=== PATIENT | female | born 1970 | race Caucasian/White ===

== ENCOUNTER 2020-07-31 10:33 | Emergency (ER) | payer MEDICAID ==
[~2020-07-31] VITALS: Ht 167.6 cm; Wt 90.7 kg
--- NOTE | 2020-07-31 11:00 | NUR ---
ED Nurse Note: PT. WALKED IN ER WITH HER INSTRUCTOR, PER PT. SHE WAS DOING HER CLINICAL IN SURGERY AND THE DOCTOR ADVANCED THE WIRE CAUSING A NEEDLESTICK ON THE 3RD DIGIT OF THE L HAND. PT IS AOx4,VSS, ON RA, AFEBRILE ON TRIAGE.
[2020-07-31] MEDS ORDERED: ISENTRESS400 MG ORAL (11:24)
[2020-07-31] MEDS ORDERED: TRUVADA 200 MG1 EAC1 ORAL (11:24)
[2020-07-31 11:25] VITALS: BP 134/70
[2020-07-31 11:45] VITALS: BP 134/70
--- NOTE | 2020-07-31 11:45 | NUR ---
ER DISCHARGE NOTE: Patient is cleared to be discharged per ERMD, pt is aox4, on room air, with stable vital signs. pt was given dc and prescription instructions, pt was able to verbalize understanding, pt id band removed. pt is able to ambulate with steady gait. pt took all belongings.
--- NOTE | 2020-07-31 13:32 | Emergency Room Report ---
History of Present Illness General Chief Complaint: Wound Recheck/Suture Removal Source: Patient Present Illness HPI 50-year-old female here after needlestick. Patient was retracting sutures in the operating room during a hip replacement for patient that is known HIV positive. Patient suffered a needlestick of her left index finger. She has no medical history. Allergies: Coded Allergies: No Known Allergies (Unverified , 07/31/20) COVID-19 Screening Contact w/high risk pt: No Experienced COVID-19 symptoms?: No COVID-19 Testing performed [employer] MANAGER: No Nursing Documentation-PMH Past Medical History: No Stated History Review of Systems All Other Systems: negative except mentioned in HPI Physical Exam Vital Signs Date Time Temp Pulse Resp B/P (MAP) Pulse Ox O2 Delivery O2 Flow Rate FiO2 07/31/20 10:48 98.8 80 19 134/70 (91) 95 Room Air Sp02 EP Interpretation: reviewed, normal General Appearance: no apparent distress, alert, non-toxic Head: normocephalic, atraumatic Eyes: bilateral eye normal inspection, bilateral eye PERRL ENT: hearing grossly normal, normal pharynx, no angioedema, normal voice Neck: full range of motion, supple/symm/no masses Cardiovascular #1: regular rate, rhythm, no edema Cardiovascular #2: 2+ carotid (R), 2+ carotid (L), 2+ radial (R), 2+ radial (L), 2+ dorsalis pedis (R), 2+ dorsalis pedis (L) Rectal: deferred Genitourinary: normal inspection, no CVA tenderness Musculoskeletal: back normal, normal range of motion, gait/station normal, non- tender Neurologic: alert, motor strength/tone normal, sensory intact, responsive, speech normal Psychiatric: judgement/insight normal, memory normal, mood/affect normal, no suicidal/homicidal ideation Skin: other - Very small 2 mm superficial laceration on the flexor surface of the left index finger distal phalanx Lymphatic: no adenopathy Medical Decision Making Diagnostic Impression: Primary Impression: Needle stick injury Additional Impressions: HIV exposure from body fluids HIV exposure ER Course 50-year-old female here after a needlestick. Patient suffered needlestick during a procedure on a patient who was known HIV positive. Rapid HIV and hepatitis panel were ordered and were negative. Patient was given a prescription for 28-day course of Isentress and Truvada. Told to follow-up with her primary care provider. Discharged in stable condition. Last Vital Signs Date Time Temp Pulse Resp B/P (MAP) Pulse Ox O2 Delivery O2 Flow Rate FiO2 07/31/20 11:45 98.8 79 19 134/70 95 Room Air Disposition: HOME, SELF-CARE Condition: Stable Scripts Emtricitabine/Tenofovir 200-300MG* (TRUVADA 200-300MG*) 1 Each Tablet 1 TAB ORAL DAILY for 28 Days, TAB Prov: Catalino Stark M.D. 07/31/20 Raltegravir (Isentress) 400 Mg Tablet 400 MG ORAL EVERY 12 HOURS for 28 Days, TAB Prov: Catalino Stark M.D. 07/31/20 Referrals: [facility] Patient Instructions: HIV Antibody Test Catalino Stark M.D. Jul 31, 2020 13:32
== END 2020-07-31 11:45 | disposition home or self-care (01) ==
LOC: EMR 11:40
DX: Z20.6 Contact with and (suspected) exposure to human immunodeficiency virus [HIV] (principal); S61.231A Puncture wound without foreign body of left index finger without damage to nail, initial encounter; X58.XXXA Exposure to other specified factors, initial encounter; Y93.89 Activity, other specified; Y92.234 Operating room of hospital as the place of occurrence of the external cause
CPT/HCPCS: 86703; Z7502; 86705; 86709; 86803; 87340; 99283